=== PATIENT | male | born 1995 | race Caucasian/White ===

== ENCOUNTER 2023-07-08 18:56 | Emergency (ER) | payer MEDICAID, SELFPAY ==
--- NOTE | ~2023-07-08 | XR_ITS ---
EXAMINATION: XR chest 2V DATE: 07/08/2023 19:26 INDICATION: Left chest pain. Shortness of breath. TECHNIQUE: Frontal and lateral views of the chest were obtained. COMPARISON: None. FINDINGS: There is no pneumonia, pleural effusion, or pneumothorax. The heart size is normal. IMPRESSION: 1. No acute cardiopulmonary disease. Reviewed, dictated and finalized at location E. D ARTILLERY CANNONEER
--- NOTE | 2023-07-08 18:59 | ECG_ITS ---
Measurements Intervals [place] Rate: 79 P: 15 [place]: 141 QRS: 21 QRSD: 114 T: 69 QT: 356 QTc: 409 Interpretive Statements SINUS RHYTHM MODERATE INTRAVENTRICULAR CONDUCTION DELAY [110+ ms QRS DURATION] NONSPECIFIC T-WAVE ABNORMALITY BORDERLINE ECG NO PREVIOUS ECG AVAILABLE FOR COMPARISON Electronically Signed On 07-09-2023 14:37:28 FINAL FINISHER by Иван De La O M.D.
[2023-07-08 19:09] VITALS: BP 150/96; PULSE 88; RESP 15; TEMP 36.3; O2SAT 100
[2023-07-08 19:30] LABS: Basophils Absolute Auto 0.1 K/mm3 (0.0-0.1); Basophils Percent Auto 0.8 % (0.2-1.2); Eosinophils Absolute Auto 0.1 K/mm3 (0-0.3); Eosinophils Percent Auto 1.6 % (0-4.4); Hematocrit 47.1 % (42.0-52.0); Immature Granulocyte Absolute 0.01 K/mm3 (0.00-0.031); Immature Granulocyte Percent A 0.1 % (0-0.5); Lymphocytes Absolute Auto 3.08 K/mm3 (0.9-3.2); Lymphocytes Percent Auto 35.2 % (18.3-44.2); Mean Corpuscular Hemoglobin 30.1 pg (26-34); Mean Corpuscular Volume 88.7 fl (80-100); Mean Platelet Volume 10.9 fl (7.4-10.4); Monocytes Absolute Auto 0.8 K/mm3 (0.1-0.6); Monocytes Percent Auto 9.3 % (2.6-8.5); Neutrophils Absolute Auto 4.6 K/mm3 (1.3-6.7); Platelet Count Result 296 k/mm3 (150-375); Red Blood Count 5.31 M/mm3 (4.6-6.20); Red Cell Distribution Width 12.5 % (11.5-14.5); White Blood Count 8.8 K/mm3 (4.5-10.0)
[2023-07-08 19:43] LABS: Alanine Aminotransferase 120 U/L (6-50); Albumin Level 4.8 g/dL (3.5-5.1); Alkaline Phosphatase 62 U/L (38-126); Anion Gap 7 mmol/L (8-16); Aspartate Amino Transferase 61 U/L (17-59); Bilirubin,Total 1.1 mg/dL (0.2-1.3); Blood Urea Nitrogen 12 mg/dL (9-20); Carbon Dioxide 30 mmol/L (22-30); Chloride 102 mmol/L (98-107); Estimated CRCL calculation 194 ml/min; Estimated Glomerular Filt Rate > 60; Glucose 91 mg/dL (65-110); INR 1.1; Lipase 62 U/L (23-300); Potassium 3.9 mmol/L (3.4-5.0); Prothrombin Time 14.2 Seconds (11.1-14.7); Sodium 139 mmol/L (137-145)
[2023-07-08 19:44] LABS: Partial Thromboplastin Time 35.4 SECONDS (22.3-36.8)
[2023-07-08 19:54] LABS: Troponin I < 0.012 ng/mL (0.000-0.034)
--- NOTE | 2023-07-08 22:26 | ECG_ITS ---
Measurements Intervals [place] Rate: 77 P: 12 [place]: 146 QRS: 25 QRSD: 107 T: 120 QT: 358 QTc: 406 Interpretive Statements SINUS RHYTHM NONSPECIFIC T-WAVE ABNORMALITY BORDERLINE ECG COMPARED TO ECG 07/08/2023 19:07:03 NO SIGNIFICANT CHANGES Electronically Signed On 07-09-2023 14:40:19 COUNTERINTELLIGENCE AGENT by Иван De La O M.D.
[2023-07-08 23:09] VITALS: BP 134/85; PULSE 90; RESP 15; O2SAT 100
[2023-07-09] VITALS (11 sets, daily range): BP systolic 131–154; BP diastolic 85–100; PULSE 72–90; RESP 13–25; O2SAT 98–100
--- NOTE | 2023-07-09 00:33 | ED.CHESTPAIN ---
HPI - Chest Pain General Chief Complaint: Chest Pain Stated Complaint: CP - left sided, SOB since this AM Time Seen by Provider: 07/09/23 00:20 History of Present Illness HPI narrative: 27-year-old male with history of hypertension reports for evaluation for left-sided chest pain that started at 10:30 a.m. this morning while he was sitting on his couch. Patient states it in the day, the pain radiated to his left shoulder that has since resolved. States his pain is worse when he leans forward and takes a deep breath as well as pushing on his chest wall. Reports associated dyspnea with the chest pain increases. Denies lower extremity edema, hemoptysis, recent surgeries or hospitalizations, fever, cough, recent injury or trauma. Denies known family history of CAD or CVA. Related Data Allergies Allergy/AdvReac Type Severity Reaction Status Date / Time No Known Allergies Allergy Verified 07/09/23 00:44 Review of Systems Review of Systems: CONSTITUTIONAL: Denies fever, chills, or sweats. EYES: Denies visual changes, redness, or discharge. ENT: Denies rhinorrhea, congestion, sore throat, or otalgia. CARDIOVASCULAR: See HPI RESPIRATORY: See HPI GASTROINTESTINAL: Denies abdominal pain, nausea, vomiting, or diarrhea. GENITOURINARY: Denies dysuria or hematuria. SKIN: Denies rash or itching. MUSCULOSKELETAL: Denies back pain, joint pain, or myalgia. NEUROLOGIC: Denies headache, numbness, or weakness. PSYCHIATRIC: Denies anxiety or depression. Exam Narrative: GENERAL: Well-appearing, well-nourished, and in no acute distress. HEAD: Normocephalic, atraumatic. EYES: PERRLA and EOMI. ENT: Nares clear, no rhinorrhea or epistaxis. Mucous membranes moist. NECK: Supple. CHEST: Clear to auscultation. No respiratory distress. Tenderness to the left sternal border and throughout the left anterior chest wall without step-offs, crepitus or deformities. HEART: Regular rate and rhythm. No murmur heard. Normal peripheral pulses. ABDOMEN: Soft, nontender, nondistended, normal active bowel sounds. EXTREMITIES: Normal range of motion. No edema. SKIN: Warm, dry, no rash. NEURO: No focal deficits. Alert and oriented x3 Course Vital Signs Vital signs: Vital Signs Temperature 97.3 F L 07/08/23 19:09 Pulse Rate 88 07/08/23 19:09 Respiratory Rate 15 07/08/23 19:09 Blood Pressure 150/96 H 07/08/23 19:09 Pulse Oximetry 100 07/08/23 19:09 Oxygen Delivery Room Air 07/08/23 19:09 Temperature 97.3 F L 07/08/23 19:09 Pulse Rate 85 07/09/23 00:52 Respiratory Rate 15 07/08/23 23:09 Blood Pressure 134/85 07/08/23 23:09 Pulse Oximetry 100 07/08/23 23:09 Oxygen Delivery Room Air 07/08/23 19:09 MDM - Chest Pain MDM Narrative Medical decision making narrative: 27-year-old male with history of hypertension reports for evaluation for chest pain that started 10:30 this morning while he was sitting on his couch. See HPI for further history. Triage vital significant for elevated blood pressure 150/96, otherwise unremarkable. Patient is well-appearing on exam, satting 100% on room air. No respiratory distress. Exam is significant for tenderness to the chest wall. CBC is unremarkable. Chemistry is significant for elevation in AST and ALT, no prior history. No abdominal pain. Lipase normal. Likely hepatic steatosis. His chest x-ray shows no acute cardiopulmonary abnormality. EKG significant around specific T-wave abnormality, sinus rhythm, no ischemic changes, not consistent with pericarditis. Troponin x2 within normal limits. Labs and imaging discussed with the patient. He received Tylenol ibuprofen for some suspected MSK etiology. Upon re-evaluation, pain had resolved. Perc negative. Will discharge home with PCP follow-up and ibuprofen for costochondritis. Strict ED return precautions discussed. He is agreeable to plan verbalized understanding. Discharged in stable condition. Lab Data 07/08/23 19:1
[2023-07-09] MEDS: ACETAMINOPHEN 500 MG TABLET 1000 MG PO (00:43)
[2023-07-09] MEDS: IBUPROFEN 400 MG TABLET 800 MG PO (00:43)
[2023-07-09] MEDS: Please add drug allergy info to patient profile. 1 EACH XX (00:45)
[2023-07-09 01:28] LABS: Troponin I < 0.012 ng/mL (0.000-0.034)
== END 2023-07-09 02:35 | disposition home or self-care (01) ==
PROVIDERS: Emergency Medicine; Emergency Provider Physician Assistant
DX: M94.0 Chondrocostal junction syndrome [Tietze] (principal); I10 Essential (primary) hypertension; R94.31 Abnormal electrocardiogram [ECG] [EKG]; I45.9 Conduction disorder, unspecified
CPT/HCPCS: 36415; 71046; 80053; 83690; 84484; 85025; 85610; 85730; 93005; 99284; A9270

== ENCOUNTER 2023-09-02 16:50 | Emergency (ER) | payer OTHER, SELFPAY ==
[2023-09-02 16:50] VITALS: BP 147/87; PULSE 89; RESP 20; TEMP 36.2; O2SAT 98
--- NOTE | 2023-09-02 17:05 | ED.GENADULT ---
HPI - General Adult General Chief complaint: Dental/Oral Stated complaint: toothache Time Seen by Provider: 09/02/23 17:05 History of Present Illness HPI narrative: The patient is a 27-year-old male with history of obesity, no other significant medical conditions. Since yesterday at 1:00 p.m., the patient has had pain in the left lower posterior molar at the wisdom tooth. He has taken Tylenol most recently 5 hours ago. There is no facial swelling. Is able to eat and drink. No fevers or chills. No other complaints. He is due to see a dentist next week. Related Data Allergies Allergy/AdvReac Type Severity Reaction Status Date / Time No Known Allergies Allergy Verified 07/09/23 00:44 Review of Systems Review of Systems: All systems reviewed & are unremarkable except as noted in HPI and below Constitutional: Constitutional: Denies chills, Denies excessive sweating, Denies fatigue, Denies fever(s), Denies headache(s) and Denies weakness Eyes: Eyes: Denies change in vision and Denies photophobia ENT: Denies dysphagia, Denies dizziness, Denies headache(s), Denies lip swelling, Denies nasal congestion, Denies sore throat and Denies tongue swelling Cardiovascular: Cardiovascular: Denies chest pain, Denies syncope, Denies rapid heart rate and Denies dyspnea Respiratory: Respiratory: Denies cough, Denies dyspnea and Denies wheezing Gastrointestinal: Gastrointestinal: Denies abdominal pain, Denies constipation, Denies dysphagia, Denies diarrhea, Denies nausea and Denies vomiting Genitourinary: Genitourinary: Denies hematuria, Denies dysuria, Denies urinary frequency and Denies urinary urgency Musculoskeletal: Musculoskeletal: Denies back pain, Denies myalgias, Denies arthralgias, Denies joint swelling and Denies numbness Integumentary/Breasts: Skin/Breast: Denies pruritus, Denies erythema and Denies rash Neurologic: Denies confusion, Denies dizziness, Denies syncope, Denies headache(s), Denies focal weakness, Denies numbness and Denies weakness Psychiatric: Psychiatric: Denies anxiety and Denies confusion Endocrine: Endocrine: Denies excessive sweating and Denies fatigue Hematologic/Lymphatic: Hematologic/Lymphatic: Denies easy bleeding and Denies easy bruising Allergic/Immunologic: Allergic/Immunologic: Denies lip swelling, Denies tongue swelling and Denies wheezing Exam Const: General: healthy appearing, no acute distress, alert and well nourished Nutritional Appearance: well nourished and obese Orientation/consciousness: patient oriented x3 Limitations: no limitations HENMT: Head: normal to inspection Ears: external ears normal Face/Nose/Sinus: normal facial exam Face and sinus: normal facial exam Mouth: Yes moist mucous membranes Teeth and gingiva: abnormal tooth and associated gingiva ( Tenderness at the left lower posterior most molar wisdom tooth) Throat: posterior oropharynx normal Other: no dental abscess. No gingival swelling. Eyes: Conjunctivae: conjunctivae normal Pupils: Equal, round and reactive pupils present EOM: EOMs intact bilaterally Neck: Neck: normal visual inspection and no meningeal signs Chest: Chest palpation & inspection: normal inspection of the chest and no tenderness Resp: Effort & Inspection: normal respiratory effort and not labored Auscultation: clear to auscultation bilaterally, no crackles, no rhonchi and no wheezes Cardio: Rate: regular rate Rhythm: regular rhythm Heart sounds: no murmurs GI: Inspection: non-distended GI Palp: Yes Soft to palpation, No Tenderness to palpation present (GI), No Guarding due to palpation present (GI) and No Rebound tenderness present : General: Yes no CVA tenderness Back/Spine/Pelvis: Back: no CVA tenderness Cervical Spine: No Cervical spine tenderness Thoracic/Lumbar Spine: No thoracic spinal tenderness Skin: General skin exam: normal color Rashes: no rashes Wounds: no wounds Neuro: General: patient oriented x3, moves all
[2023-09-02] MEDS: AMOXICILLIN 500 MG CAPSULE PO (17:12)
[2023-09-02] MEDS: IBUPROFEN 400 MG TABLET 800 MG PO (17:12)
[2023-09-02] MEDS: ACETAMINOPHEN 500 MG TABLET 1000 MG PO (17:13)
== END 2023-09-02 17:43 | disposition home or self-care (01) ==
LOC: CHSED 17:23
PROVIDERS: Emergency Provider Emergency Medicine
DX: K02.9 Dental caries, unspecified (principal)
CPT/HCPCS: 99283; A9270

== ENCOUNTER 2023-11-15 14:16 | Outpatient (CLI) | payer OTHER, SELFPAY ==
--- NOTE | ~2023-11-15 | XR_ITS ---
[id number] Ordering provider: Adria Llanos APRN History: . numbness/tingling on LT side radiating down LT arm x3 days . Comparison: None. FINDINGS: VERTEBRAL BODIES: Normal height and alignment. No visible fracture or subluxation. The dens is intact . DISK SPACES: Well maintained. PARASPINOUS SOFT TISSUES: No prevertebral soft tissue swelling. IMPRESSION: No acute osseous abnormality cervical spine. Reviewed, dictated and finalized at location A.
[2023-11-15 14:43] LABS: Basophils Absolute Auto 0.07 K/mm3 (0.00-0.10); Basophils Percent Auto 0.7 % (0.0-1.0); Eosinophils Absolute Auto 0.15 K/mm3 (0.02-0.50); Eosinophils Percent Auto 1.5 % (1.0-6.0); Hematocrit 46.3 % (40.0-54.0); Hemoglobin 16.2 g/dL (14.0-18.0); Immature Granulocyte Absolute 0.02 K/mm3 (0.00-0.00); Immature Granulocyte Percent A 0.2 % (0.0-0.0); Lymphocytes Absolute Auto 3.44 K/mm3 (1.10-4.50); Lymphocytes Percent Auto 35.4 % (18.0-42.0); Mean Corpuscular Hemoglobin 30.5 pg (27.0-31.0); Mean Corpuscular Volume 87.2 fL (78.0-102.0); Mean Platelet Volume 10.7 fl (8.7-11.0); Monocytes Absolute Auto 0.85 K/mm3 (0.10-0.90); Monocytes Percent Auto 8.7 % (2.0-11.0); Neutrophils Percent Auto 53.5 % (50.0-70.0); Platelet Count Result 281 K/mm3 (150-420); Red Blood Count 5.31 M/mm3 (4.70-6.10); Red Cell Distribution Width 12.1 % (11.6-14.4); White Blood Count 9.7 K/mm3 (4.8-10.8)
[2023-11-15 14:54] LABS: Hemoglobin A1C 4.8 % (<5.7)
[2023-11-15 15:22] LABS: Alanine Aminotransferase 84 U/L (16-63); Albumin Level 4.3 g/dL (3.4-5.0); Alkaline Phosphatase 67 U/L (46-116); Anion Gap 8 mmol/L (4-12); Aspartate Amino Transferase 33 U/L (15-37); Bilirubin,Total 0.7 mg/dL (0.00-1.00); Blood Urea Nitrogen 8 mg/dL (7-18); Calcium 9.3 mg/dL (8.5-10.1); Carbon Dioxide 29 mmol/L (21-32); Chloride 103 mmol/L (98-108); Cholesterol 223 mg/dL (0-200); Estimated Glomerular Filt Rate > 60; Glucose 92 mg/dL (70-99); HDL Direct 39 mg/dL (40-60); LDL Cholesterol Calculated 129 mg/dL (<130); Osmolality Calculated 288 mOsm/kg (285-295); Potassium 4.3 mmol/L (3.5-5.1); Sodium 140 mmol/L (136-145); Thyroid Stimulating Hormone 1.93 uIU/mL (0.36-3.74); Total Protein 7.5 g/dL (6.4-8.2); Triglycerides 276 mg/dL (0-150)
== END 2023-11-15 14:17 | disposition home or self-care (01) ==
PROVIDERS: PCP Nurse Practitioner Family; Visit Provider Nurse Practitioner Family
DX: Z00.00 Encounter for general adult medical examination without abnormal findings (principal); R20.2 Paresthesia of skin; R20.0 Anesthesia of skin
CPT/HCPCS: 36415; 72040; 80053; 80061; 83036; 84443; 85025

== ENCOUNTER 2023-11-18 14:02 | Outpatient (CLI) | payer OTHER, SELFPAY ==
--- NOTE | ~2023-11-18 | XR_ITS ---
EXAMINATION: XR lumbar spine 2-3V DATE: 11/18/2023 14:17 INDICATION: Low back pain. TECHNIQUE: 2 views of lumbar spine were obtained. COMPARISON: Chest 2 views 07/08/2023 FINDINGS: Bone alignment is normal. Vertebral body heights and intervertebral disc heights are normal . The facet joints are unremarkable. IMPRESSION: 1. Normal lumbar spine. Reviewed, dictated and finalized at location A. IMPRESSION: 1. Normal lumbar spine.
== END 2023-11-18 14:03 | disposition home or self-care (01) ==
LOC: CHSLAB 14:05
PROVIDERS: PCP Nurse Practitioner Family; Visit Provider Nurse Practitioner Family
DX: M54.50 Low back pain, unspecified (principal)
CPT/HCPCS: 72100

== ENCOUNTER 2023-11-22 07:50 | Outpatient (RCR) | payer OTHER, SELFPAY ==
--- NOTE | 2023-11-22 09:38 | OPREHPOC ---
Outpatient Therapy Plan of Care This is a Multidisciplinary Plan of Care that may contain components documented by all disciplines (PT, OT, and ST.) PT Problem 1 PT Problem #1 Knowledge Deficit PT Goal 1 Goal 1. independent and compliant with HEP Target Visit 6 PT Problem 2 PT Problem #2 Pain PT Goal 1 Goal 1. decrease lower back pain at worst to 5/10 or less 2. decrease neck pain at worst to 4/10 or less Target Visit 12 PT Problem 3 PT Problem #3 Impaired Range of Motion PT Goal 1 Goal 1. 100% active lumbar rom without pain or instability Target Visit 12 PT Problem 4 PT Problem #4 Impaired Strength PT Goal 1 Goal 1. improve L shoulder and elbow strength to 4+/5 or better overall 2. improve L hip strength to 4+/5 or better overall 3. improve L knee strength to 5/5 4. improve L ankle DF to 5/5 Target Visit 12 PT Problem 5 PT Problem #5 Impaired Functional Mobil PT Goal 1 Goal 1. oswestry to display 10% or less functional deficits 2. NDI to display less than 10% functional deficits 3. patient to ambulate with normal gait mechanics and no AD 4. patient to return to prior level standing and walking tolerance to participate in home and community activities. 5. patient to report reduction of all L LE and L UE radicular symptoms. Target Visit 12
--- NOTE | 2023-11-22 09:38 | PTOPEVAL1 ---
Assessment and note entered by JT File, PT Evaluation Information Assessment Status Evaluation ICD-10 Condition Codes (PT) Cervicalgia M54.2,Pain in low back M54.50 Other ICD-10 Condition Codes ( R 20.0 - anesthesia of skin, R20.2 - paresthesia PT) of skin Onset 11/18/23 Subjective Information patient reports his symptoms began as pains in the legs and making him hobble around. however, he reports it has progressed to his legs collapsing on him frequently. he reports his legs feel rubbery. he reports these symptoms are located to the L LE. he reports his symptoms have been going on most recently since 11/12/23. he reports he has had similar symptoms in the past. he reports his symptoms lasted months last time. he reports he did do PT last time due to his symptoms. he reports he did have a lumbar xray recently. he reports he is unaware of any significant results. he reports he does work. 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 he reports he is off work currently due to his L LE. he reports he is also having issues with the neck. he reports the neck feels like a knot in the neck that wont go away. he reports he has symptoms in the L UE. he reports feeling numbness and having weakness and difficulty grasping items. he reports he has had an xray of the neck, but no MRI as of this date. he has no recollection of an injury. however, he reports he was stuck in a unicorn floatie walking around [employer] for several hours prior to his symptoms beginning. he report she has seen a neurologist once who thought he may have MS, but patient reports the MD moved, and he has not followed up with anyone else. he reports this original assessment was last year. Reported Pain Level Pain Score 7,10: Self Report Assessment PT Clinical Summary mr. reynoso is a 28 yo man who presents to skilled PT for evaluation and treatment of neck and back radiculopathy. he presents today with deficits in L UE and L LE strength, L UE and L LE paresthesia's, deficits in lumbar rom, and abnormal gait mechanics. he has no significant injury that correlates to his symptoms, and his xray of the neck and lower back are negative. patient's would benefit from MRI evaluation of the neck and back to rule out any discoid injury, and referral to neurologist for evaluation of old findings reported to PT today.
== END 2023-12-26 20:00 | disposition home or self-care (01) ==
LOC: CHSPT 07:50
PROVIDERS: PCP Family Medicine; Visit Provider Nurse Practitioner Family
DX: M54.50 Low back pain, unspecified (principal); M54.2 Cervicalgia; R20.0 Anesthesia of skin; R20.2 Paresthesia of skin
CPT/HCPCS: 97012; 97014; 97110; 97161; G0283

== ENCOUNTER 2023-12-03 07:49 | Outpatient (CLI) | payer OTHER, SELFPAY ==
--- NOTE | ~2023-12-03 | MR_ITS ---
MR cervical spine wo con Ordering provider: Adria Llanos APRN History: 28 years Male with . M54.2 - Cervicalgia . Comparison: None. Technique: MRI cervical spine without contrast. FINDINGS: CERVICAL SPINAL CORD/CRANIAL CERVICAL JUNCTION: Normal in signal and caliber. CERVICAL VERTEBRAL BODIES: Normal height and alignment. Normal marrow signal. DISK SPACES: Normal. C2-C3: No stenosis. C3-C4: No stenosis. C4-C5: No stenosis. C5-C6: No stenosis. C6-C7: No stenosis. C7-T1: No stenosis. VISUALIZED PARASPINOUS SOFT TISSUES: Normal. IMPRESSION: 1. No definite abnormality seen. Reviewed, dictated and finalized at location A.
== END 2023-12-03 07:50 | disposition home or self-care (01) ==
LOC: CHSIMG 07:50
PROVIDERS: PCP Nurse Practitioner Family; Visit Provider Nurse Practitioner Family
DX: R20.2 Paresthesia of skin (principal); R20.0 Anesthesia of skin; M54.2 Cervicalgia
CPT/HCPCS: 72141

== ENCOUNTER 2023-12-05 14:55 | Emergency (ER) | payer OTHER, SELFPAY ==
[2023-12-05 15:01] VITALS: BP 176/99; PULSE 117; RESP 22; TEMP 36.4; O2SAT 99
[2023-12-05 15:21] VITALS: O2SAT 99
--- NOTE | 2023-12-05 16:23 | ED.ALLEREA ---
HPI - Allergic Reaction General Chief complaint: Allergic Reaction Stated complaint: ALLERGIC REACTION Time Seen by Provider: 12/05/23 14:59 Related Data Allergies Allergy/AdvReac Type Severity Reaction Status Date / Time tetrahydrocannabinol (THC) Allergy Severe Muscle Unverified 12/05/23 15:13 Spasms tree and shrub pollen Allergy Mild Other Verified 12/05/23 15:13 black mold Allergy Mild Other Uncoded 11/18/23 13:35 Review of Systems Review of Systems: Patient is a 28-year-old male with a significant past medical history that presents today for looser reaction. Patient says that he drank a can and soda and he thinks has allergic reaction to wear 1 ingredients was. He gave himself an epi shot because of this. He said he does have a few higher dose and no shortness of breath but decided to give himself the EpiPen anyways. He currently now is shaky and has a high heart rate because the eppy. All systems reviewed & are unremarkable except as noted in HPI and below Constitutional: Constitutional: Reports as per HPI Eyes: Eyes: Reports no additional eye complaints ENT: Reports system reviewed and no additional complaints, except as documented Cardiovascular: Cardiovascular: Reports no additional cardiovascular complaints Respiratory: Respiratory: Reports no additional respiratory complaints Gastrointestinal: Gastrointestinal: Reports no additional gastrointestinal complaints Genitourinary: Genitourinary: Reports no additional male genitourinary complaints Musculoskeletal: Musculoskeletal: Reports no additional musculoskeletal complaints Integumentary/Breasts: Skin/Breast: Reports system reviewed and no additional complaints, except as docu Neurologic: Reports system reviewed and no additional complaints, except as documented Psychiatric: Psychiatric: Reports no additional psychiatric complaints Endocrine: Endocrine: Reports no additional endocrine complaints Hematologic/Lymphatic: Hematologic/Lymphatic: Reports no additional hematologic/lymphatic complaints Allergic/Immunologic: Allergic/Immunologic: Reports no additional allergic/immunologic complaints [facility] Past Medical History Medical History 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 Cervicalgia Hypertension Family History Family History Mother Diabetes mellitus Social History Social History Smoking status: Former smoker Alcohol intake: current Alcohol use details: reports may have a shot to get to bed every few weeks, otherwise does not drink Do You Feel Safe in your Home?: Yes Lack of Transportation: No Lack of Food: Never True Current Housing: I Have Housing Concerned About Future Housing: No Difficulty Paying Gas/Electric Bills: No Difficulty Paying for Meds: No Currently Unemployed: No Education: High School Diploma/GED Difficulty w/ Childcare or Family Care: No Living arrangements: with family Occupation/Education: occupation Additional occupation/education comments: [employer] Gender identity (if verbalized by the patient): Male Sexual Orientation (if Verbalized by the Patient): Straight or Heterosexual Exam Const: General: healthy appearing and no acute distress Nutritional Appearance: well nourished Orientation/consciousness: patient oriented x3 HENMT: Head: normal to inspection Ears: external ears normal Face/Nose/Sinus: Normal external nose present Face and sinus: normal facial exam Eyes: Conjunctivae: conjunctivae normal Pupils: Equal, round and reactive pupils present EOM: EOMs intact bilaterally Neck: Neck: normal visual inspection Chest: Chest palpation & inspection: normal inspection of the chest Resp: Effort & Inspection: normal respiratory effort Auscultation: clear to auscultation bilaterally Cardio: Rate: regular rate
[2023-12-05 16:35] VITALS: BP 150/98; PULSE 99; RESP 18; TEMP 36.3; O2SAT 100
== END 2023-12-05 16:38 | disposition home or self-care (01) ==
PROVIDERS: Emergency Provider Family Medicine; PCP Nurse Practitioner Family
DX: T78.1XXA Other adverse food reactions, not elsewhere classified, initial encounter (principal); R21 Rash and other nonspecific skin eruption; I10 Essential (primary) hypertension; Z87.891 Personal history of nicotine dependence
CPT/HCPCS: 99283

== ENCOUNTER 2023-12-07 12:45 | Outpatient (CLI) | payer OTHER, SELFPAY ==
--- NOTE | ~2023-12-07 | XR_ITS ---
XR hip LT min 2V 12/07/2023 13:03 Indication: Left hip pain Procedure: 2 views left hip Comparison: No prior studies for comparison. Findings: No fracture, subluxation or dislocation. No significant soft tissue abnormality. No foreign bodies. No foreign bodies. Impression: 1: No significant bone or joint abnormality. Reviewed, dictated and finalized at location B. Impression: 1: No significant bone or joint abnormality.
== END 2023-12-07 12:46 | disposition home or self-care (01) ==
PROVIDERS: PCP Nurse Practitioner Family; Visit Provider Nurse Practitioner Family
DX: M25.552 Pain in left hip (principal)
CPT/HCPCS: 73502

== ENCOUNTER 2023-12-14 15:03 | Outpatient (CLI) | payer OTHER, SELFPAY ==
[2023-12-14 16:09] LABS: CRP 1.3 mg/dL (0.0-0.9); Vitamin B12 715 pg/mL (193-986)
[2023-12-14 17:05] LABS: Erythrocyte Sedimentation Rate 34 mm/hr (0-15)
[2023-12-16 03:09] LABS: Vitamin D 25 Hydroxy 23 ng/mL (30-100)
[2023-12-16 11:49] LABS: ANA Cascade Screen NEGATIVE (NEGATIVE)
[2023-12-19 11:43] LABS: RPR Screen NON-REACTIVE (NON-REACTIVE)
[2023-12-19 15:14] LABS: Lyme Disease Ab (IgM), Blot NEGATIVE (NEGATIVE); Lyme Disease Ab(IgG), Blot NEGATIVE (NEGATIVE)
== END 2023-12-14 15:04 | disposition home or self-care (01) ==
PROVIDERS: PCP Nurse Practitioner Family; Visit Provider Nurse Practitioner Family
DX: R93.0 Abnormal findings on diagnostic imaging of skull and head, not elsewhere classified (principal)
CPT/HCPCS: 36415; 82306; 82607; 83516; 85652; 86038; 86140; 86225; 86235; 86592; 86617

== ENCOUNTER 2024-01-23 15:31 | Outpatient (CLI) | payer OTHER, SELFPAY ==
[2024-01-23 16:43] LABS: Alanine Aminotransferase 97 U/L (16-63); Albumin Level 4.3 g/dL (3.4-5.0); Alkaline Phosphatase 79 U/L (46-116); Aspartate Amino Transferase 39 U/L (15-37); Bilirubin Direct 0.1 mg/dL (0-0.2); Bilirubin,Total 0.6 mg/dL (0.00-1.00); Cholesterol 249 mg/dL (0-200); HDL Direct 43 mg/dL (40-60); LDL Cholesterol Calculated 163 mg/dL (<130); Total Protein 7.5 g/dL (6.4-8.2); Triglycerides 216 mg/dL (0-150)
[2024-01-24 11:35] LABS: Vitamin D 25 Hydroxy 28 ng/mL (30-100)
[2024-01-24 12:08] LABS: Hepatitis A Antibody IgM NON-REACTIVE (NON-REACTIVE); Hepatitis B Core Antibody NON-REACTIVE (NON-REACTIVE); Hepatitis B Surface Antigen NON-REACTIVE (NON-REACTIVE); Hepatitis C Virus Antibody NON-REACTIVE (NON-REACTIVE)
== END 2024-01-23 15:32 | disposition home or self-care (01) ==
LOC: CHSLAB 15:32
PROVIDERS: PCP Nurse Practitioner Family; Visit Provider Nurse Practitioner Family
DX: E78.00 Pure hypercholesterolemia, unspecified (principal); E55.9 Vitamin D deficiency, unspecified; R74.8 Abnormal levels of other serum enzymes
CPT/HCPCS: 36415; 80061; 80074; 80076; 82306

== ENCOUNTER 2024-04-27 14:57 | Outpatient (CLI) | payer OTHER, SELFPAY ==
--- NOTE | ~2024-04-27 | XR_ITS ---
EXAMINATION: XR thoracic spine 2V DATE: 04/27/2024 15:28 INDICATION: Back pain. Fall. TECHNIQUE: 3 views of thoracic spine on 4 radiographs were obtained. COMPARISON: None. FINDINGS: There is 4 degrees dextrocurvature of thoracic spine. Vertebral body heights are normal. Th ere is mildly decreased disc height at multiple levels in mid thoracic spine. There are endplate oste ophytes at multiple levels. IMPRESSION: 1. Mild thoracic spondylosis. Reviewed, dictated and finalized at location A. UAGE TRANSLATOR
--- NOTE | ~2024-04-27 | XR_ITS ---
EXAMINATION: XR wrist RT w scaphoid DATE: 04/27/2024 15:27 INDICATION: Right wrist pain. Fall. TECHNIQUE: 4 views of right wrist were obtained. COMPARISON: None. FINDINGS: Alignment is normal. No fracture. Joint spaces are normal. IMPRESSION: 1. Normal right wrist. Reviewed, dictated and finalized at location A. OIL COOLER OPERATOR IMPRESSION: 1. Normal right wrist.
[2024-04-27 15:53] LABS: Alanine Aminotransferase 96 U/L (16-63); Albumin Level 4.2 g/dL (3.4-5.0); Alkaline Phosphatase 81 U/L (46-116); Anion Gap 8 mmol/L (4-12); Aspartate Amino Transferase 37 U/L (15-37); Bilirubin,Total 0.6 mg/dL (0.00-1.00); Blood Urea Nitrogen 12 mg/dL (7-18); Calcium 9.8 mg/dL (8.5-10.1); Carbon Dioxide 30 mmol/L (21-32); Chloride 102 mmol/L (98-108); Cholesterol 257 mg/dL (0-200); Estimated Glomerular Filt Rate > 60; Glucose 98 mg/dL (70-99); HDL Direct 47 mg/dL (40-60); LDL Cholesterol Calculated 158 mg/dL (<130); Osmolality Calculated 289 mOsm/kg (285-295); Potassium 4.4 mmol/L (3.5-5.1); Sodium 140 mmol/L (136-145); Total Protein 7.6 g/dL (6.4-8.2); Triglycerides 262 mg/dL (0-150)
--- OUTSIDE RECORDS SUMMARY | 2024-05-01 00:10 | XMS_ITS | Encounter Summary ---
Author Organization [facility] Healthcare Address [address] [place] [address] Care Team Providers Care Financial Reporting Manager Name Role Phone Adria Llanos NP Primary Care Provider [phone] Reason for Referral * MRI/CAT/PET Scan (Routine) - Closed Specialty Diagnoses / Procedures Referred By Hamida butt Referred To Contact Radiology Diagnoses Multiple sclerosis (HCC) Procedures MRI Brain W WO Contrast Tai Coon MD [address] [place] [address] [address] [place] [address] Phone: tel: fax: [address] [phone] Referral ID Status Reason Start Date Expiration Date Visits Re quested Visits Authorized [id number] Closed 03/23/2024 05/22/2024 1 1 ETIC TECHNICIAN REGISTERED Reason for Visit * MRI/CAT/PET Scan (Routine) - Closed Specialty Diagnoses / Procedures Referred By Contac filomena Referred To Contact Radiology Diagnoses Multiple sclerosis (HCC) Procedures MRI Brain W WO Contrast Tai Coon MD [address] [place] [address] [place] [address] Phone: tel: fax: [address] [phone] Referral ID Status Reason Start Date Expiration Date Visits Re quested Visits Authorized [id number] Closed 03/23/2024 05/22/2024 1 1 Encounter Details Date Type Department Care Team (Latest Contact Info) Description 04/26/2024 12:35 PM DIETETIC TECHNICIAN REGISTERED - 04/26/2024 11:59 PM DIETETIC TECHNICIAN REGISTERED Hospital Encounter [facility] [address] [place] [address] Multiple sclerosis (HCC) Discharge Disposition: Discharge to home or self care Social History Tobacco Use Types Packs/Day Years Used Date Smoking Tobacco: Former Cigarettes Sex and Gender Information Value Date Recorded Sex Assigned at Not on file Legal Sex Male 1:24 PM CDT Gender Identity Male 03/22/2024 9:32 AM DIETETIC TECHNICIAN REGISTERED Sexual Orientation Asexual 03/22/2024 9: 32 AM DIETETIC TECHNICIAN REGISTERED documented as of this encounter Medications at Time of Discharge ergocalciferol (VITAMIN D) 50,000 unit capsule 03/14/2024 escitalopram (LEXAPRO) 10 mg tablet TAKE 1 TAB ORALLY DAILY FOR 10 WEEKS 02/16/2024 milk thistle 150 mg capsule Take by mouth mupirocin (BACTROBAN) 2 % ointment APPLY AROUND NAILBED OF BOTH BIG TOES TWICE DAILY FOR 2 WEEKS. 01/25/2024 documented as of this encounter Discharge Disposition Disposition Code Departure Means Destination Discharge to home or self care documented in this encounter Plan of Treatment Not on file documented as of this encounter Procedures Procedure Name Priority Date/Time Associated Diagnosis Comments MRI BRAIN W WO CONTRAST Schedule ASHLEY, Read Routine (Patient lives out of area) 04/26/2024 1:48 PM DIETETIC TECHNICIAN REGISTERED Multiple sclerosis (HCC) documented in this encounter Results * MRI Brain W WO Contrast (04/26/2024 1:48 PM DIETETIC TECHNICIAN REGISTERED) Anatomical Region Laterality Modality Head and Neck N/A Magnetic Resonan ce 04/26/2024 2:10 PM DIETETIC TECHNICIAN REGISTERED Narrative 04/26/2024 2:17 PM DIETETIC TECHNICIAN REGISTERED EXAM DESCRIPTION: ?? MRI BRAIN W WO CONTRAST REASON FOR STUDY: 2 episodes, of unspecified duration per episode, of left-sided body numbness this past summer with clinical concern for multiple sclerosis. ??No provided current patient complaints. ??No provided history of trauma or inciting and/or aggravating events. ??No provided past medical or surgical history. TECHNIQUE: Multiplanar imaging includes noncontrast T1, T2, FLAIR, diffusion with ADC map and post contrast T1 sequences. Additional sequence(s) sensitive to blood products. ??Images stored on PACS. ? CONTRAST TYPE/DOSE: ?? 20 mL Dotarem ??injected via ?? peripheral IV site without reported incident. COMPARISON: ?? No prior imaging available at time of interpretation. FINDINGS: CEREBRUM: ?? No acute intra-axial hemorrhage. ??No edema, mass effect, midline shift, or herniation. ?No abnormal enhancement. ?? Slight mineralization of the lentiform nuclei. WHITE MATTER: ?? 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 T2/FLAIR hyperintense ??white matter disease concerning for demyelinating disease to include multiple sclerosis. ??No associated contrast enhancement to suggest active demyelinating lesions, though multiple lesions demonstrate associated slight T1 hypointensity consistent with black holes. POSTERIOR FOSSA: ?? Brainstem and cerebellum are unremarkable. ??No abnormal enhancement. DIFFUSION IMAGING: ?No restricted diffusion to suggest cytotoxic or intramyelinic edema as evidence of acute/subacute ischemia/infarct or active demyelinating lesions. EXTRAAXIAL SPACES: ?? No extra-axial fluid collection. ??No extra-axial mass. ?? No abnormal enhancement. BRAIN VOLUME: ?? Within normal limits for age. PITUITARY: ?? Unremarkable. VASCULATURE: ?? No flow disturbance evident. CALVARIUM: Unremarkable. ORBITS: ?? No acute abnormality. ??Ocular lenses and globes normal in conformation and position. PARANASAL SINUSES AND MASTOIDS: ?? Well-aerated with no fluid levels. No mucosa thickening. OTHER: ?? No other significant finding. IMPRESSION: ?? 1. ?? White matter disease as detailed above concerning for demyelinating disease to include multiple sclerosis without contrast enhancement suggestive of active demyelinating lesions, though multiple lesions demonstrating associated slight T1 hypointensity consistent with black holes. 2. ?? Correlate with clinical context to include CSF oligoclonal band analysis. THIS IS AN ELECTRONICALLY VERIFIED FINAL REPORT 04/26/2024 2:17 PM - Electronically signed by ??Jett KAUR: VINCENT D: ??04/26/2024 2:17 PM T: ??04/26/2024 2:17 PM Report ID: [id number] Reading Location: ??[id number] Procedure Note Jett Patterson MD - 04/26/2024 EXAM DESCRIPTION: MRI BRAIN W WO CONTRAST REASON FOR STUDY: 2 episodes, of unspecified duration per episode, of left-sided body numbness this past summer with clinical concern formultiple sclerosis. No provided current patient complaints. No provided historyof trauma or inciting and/or aggravating events. No provided past medical or surgical history. TECHNIQUE: Multiplanar imaging includes noncontrast T1, T2, FLAIR,diffusion with ADC map and post contrast T1 sequences. Additional sequence(s)sensitive to blood products. Images stored on PACS. CONTRAST TYPE/DOSE: 20 mL Dotarem injected via peripheral IV sitewithout reported incident. COMPARISON: No prior imaging available at time of interpretation. FINDINGS: CEREBRUM: No acute intra-axial hemorrhage. No edema, mass effect,midline shift, or herniation. No abnormal enhancement. Slight mineralizationof the lentiform nuclei. 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 No associatedcontrast enhancement to suggest active demyelinating lesions, though multiplelesions demonstrate associated slight T1 hypointensity consistent with blackholes. POSTERIOR FOSSA: Brainstem and cerebellum are unremarkable. No abnormal enhancement. DIFFUSION IMAGING: No restricted diffusion to suggest cytotoxic or intramyelinic edema as evidence of acute/subacute ischemia/infarct oractive demyelinating lesions. EXTRAAXIAL SPACES: No extra-axial fluid collection. No extra-axialmass. No abnormal enhancement. BRAIN VOLUME: Within normal limits for age. PITUITARY: Unremarkable. VASCULATURE: No flow disturbance evident. CALVARIUM: Unremarkable. ORBITS: No acute abnormality. Ocular lenses and globes normal in conformation and position. PARANASAL SINUSES AND MASTOIDS: Well-aerated with no fluid levels. Nomucosa thickening. OTHER: No other significant finding. IMPRESSION: 1. White matter disease as detailed above concerning for demyelinating disease to include multiple sclerosis without contrast enhancementsuggestive of active demyelinating lesions, though multiple lesions demonstrating associated slight T1 hypointensity consistent with black holes. 2. Correlate with clinical context to include CSF oligoclonal bandanalysis. THIS IS AN ELECTRONICALLY VERIFIED FINAL REPORT 04/26/2024 2:17 PM - Electronically signed by Jett Patterson M.D. VINCENT: VINCENT Report ID: [id number] Reading Location: [place] [address] Tai Coon MD IMG MRI PROCEDURES Kera l Result documented in this encounter Visit Diagnoses Diagnosis Multiple sclerosis (HCC) Multiple sclerosis documented in this encounter Administered Medications Inactive Administered Medications - up to 3 most recent administrations Medication Order MAR Action Action Date Dose Rate Site gadoterate meglumine injection 20 mL 20 mL, intravenous, Once in imaging, contrast, Starting on Antionette 04/26/24 at 1349, For 1 dose Contrast Given 04/26/2024 1:51 PM DIETETIC TECHNICIAN REGISTERED 20 mL documented in this encounter Orders Medications Ordered That Kwabena ht Not Have Been Administered Count Last Ordered Date First Ordered Date gadoterate meglumine injection 20 mL 1 04/15 documented in this encounter Care Teams Financial Reporting Manager Relationship Specialty Start Date End Date Adria Llanos NP [address] [place] [address] PCP - General Family Medicine 11/23/23 documented as of this encounter
--- OUTSIDE RECORDS SUMMARY | 2024-05-01 00:10 | XMS_ITS | Referral Summary ---
Author Organization [facility] Medical Office Building B Address [address] [place] [address] Care Team Providers Care Bulk Filler Name Role Phone Adria Llanos NP Primary Care Provider [phone] Encounters Date Type Department Care Team Description 04/26/2024 12:35 PM RODENT CONTROL WORKER - 04/26/2024 11:59 PM RODENT CONTROL WORKER Hospital Encounter [facility] [address] [place] [address] Multiple sclerosis (HCC) Discharge Disposition: Discharge to home or self care 03/22/2024 9:00 AM RODENT CONTROL WORKER Office Visit [facility] [address] [place] [id number] Tai Coon MD Cervicalgia; Multiple sclerosis (HCC) from Last 3 Months Allergies Active Allergy Reactions Criticality Noted Date Comments Mold Hives Medium 03/22/2024 Tetrahydrocannabinol (Thc) Other (See comments) Low 03/22/2024 Shaking Medications mupirocin (BACTROBAN) 2 % ointment APPLY AROUND NAILBED OF BOTH BIG TOES TWICE DAILY FOR 2 WEEKS. 01/25/2024 Active escitalopram (LEXAPRO) 10 mg tablet TAKE 1 TAB ORALLY DAILY FOR 10 WEEKS 02/16/2024 Active ergocalciferol (VITAMIN D) 50,000 unit capsule 03/14/2024 Active milk thistle 150 mg capsule Take by mouth Active Active Problems Problem Noted Date Diagnosed Date Multiple sclerosis 03/22/2024 Social History Tobacco Use Types Packs/Day Years Used Date Smoking Tobacco: Former Cigarettes Tobacco Cessation:Counseling Given: Not Answered Sex and Gender Information Value Date Recorded Sex Assigned at Not on file Legal Sex Male 1:24 PM CDT Gender Identity Male 03/22/2024 9:32 AM RODENT CONTROL WORKER Sexual Orientation Asexual 03/22/2024 9: 32 AM RODENT CONTROL WORKER Last Filed Vital Signs Vital Sign Reading Time Taken Comments Blood Pressure - - Pulse 89 03/22/2024 9:03 AM RODENT CONTROL WORKER Temperature - - Respiratory Rate 18 03/22/2024 9:03 AM RODENT CONTROL WORKER Oxygen Saturation 97% 03/22/2024 9:03 AM RODENT CONTROL WORKER Inhaled Oxygen Concentration - - Weight 146.7 kg (323 lb 6.4 oz) 03/22/2024 9:03 AM RODENT CONTROL WORKER Height 188 cm (6' 2 ) 03/22/2024 9:03 AM RODENT CONTROL WORKER Body Mass Index 41.52 03/22/2024 9:03 AM RODENT CONTROL WORKER Plan of Treatment Not on file Procedures Procedure Name Priority Date/Time Associated Diagnosis Comments MRI BRAIN W WO CONTRAST Schedule ASHLEY, Read Routine (Patient lives out of area) 04/26/2024 1:48 PM RODENT CONTROL WORKER Multiple sclerosis (HCC) from Last 3 Months Results * MRI Brain W WO Contrast (04/26/2024 1:48 PM RODENT CONTROL WORKER) Anatomical Region Laterality Modality Head and Neck N/A Magnetic Resonan ce 04/26/2024 2:10 PM RODENT CONTROL WORKER Narrative 04/26/2024 2:17 PM RODENT CONTROL WORKER EXAM DESCRIPTION: ?? MRI BRAIN W WO [...] 2:17 PM - Electronically signed by ??Jett Patterson M.D. VINCENT: VINCENT D: ??04/26/2024 2:17 PM T: ??04/26/2024 2:17 PM Report ID: [id number] Reading Location: ??[id number] Procedure Note Jett Patterson MD - 04/26/2024 [...] Jett Patterson M.D. VINCENT: VINCENT Report ID: [id number] Reading Location: [id number] Tai Coon MD IMG MRI PROCEDURES Kera l Result from Last 3 Months Insurance [facility] [facility] Care Teams Bulk Filler Relationship Specialty Start Date End Date Adria Llanos NP [address] [place] [address] PCP - General Family Medicine 11/23/23
--- OUTSIDE RECORDS SUMMARY | 2024-05-01 00:10 | XMS_ITS | Clinical Summary ---
Author Organization [facility] Medical Office Building B Address [address] [place] [address] Care Team Providers Care Rehabilitator Name Role Phone Adria Llanos NP Primary Care Provider [phone] Allergies Active Allergy Reactions Criticality Noted Date [...] Noted Date Diagnosed Date Multiple sclerosis 03/22/2024 Encounters Date Type Department Care Team Description 04/26/2024 12:35 PM GREEN MARKETING ANALYST - 04/26/2024 11:59 PM GREEN MARKETING ANALYST Hospital Encounter [facility] [address] [place] [address] Multiple sclerosis (HCC) Discharge Disposition: Discharge to home or self care 03/22/2024 9:00 AM GREEN MARKETING ANALYST Office Visit [facility] [address] [place] [address] Tai Coon MD Cervicalgia; Multiple sclerosis (HCC) from Last 3 Months Family History Medical History Relation Name Comments Diabetes Mother garrett Relation Name Status Comments Mother garrett Alive Social History Tobacco Use Types Packs/Day Years Used Date Smoking Tobacco: Former Cigarettes Tobacco Cessation:Counseling Given: Not Answered Sex and Gender Information Value Date Recorded Sex Assigned at Not on file Legal Sex Male 1:24 PM CDT Gender Identity Male 03/22/2024 9:32 AM GREEN MARKETING ANALYST Sexual Orientation Asexual 03/22/2024 9: 32 AM GREEN MARKETING ANALYST Obstetrics History Last Filed Vital Signs Vital Sign Reading Time Taken Comments Blood Pressure - - Pulse 89 03/22/2024 9:03 AM GREEN MARKETING ANALYST Temperature - - Respiratory Rate 18 03/22/2024 9:03 AM GREEN MARKETING ANALYST Oxygen Saturation 97% 03/22/2024 9:03 AM GREEN MARKETING ANALYST Inhaled Oxygen Concentration - - Weight 146.7 kg (323 lb 6.4 oz) 03/22/2024 9:03 AM GREEN MARKETING ANALYST Height 188 cm (6' 2 ) 03/22/2024 9:03 AM GREEN MARKETING ANALYST Body Mass Index 41.52 03/22/2024 9:03 AM GREEN MARKETING ANALYST Plan of Treatment Health Maintenance Due Date Last Done Comments Depression Screening 1997 Hepatitis C Screening 1997 DTaP/Tdap/Td Vaccine (1 - Tdap) 2008 Varicella Vaccines (1 of 2 - 13+ 2-dose series) 2010 HPV Vaccines (1 - Male 3-dos e series) 2012 Hepatitis B Screening 10/16/2015 Regular Well Visit/Exam 18-64 10/16/2015 Influenza Vaccine (#1) 2024 Pneumococcal vaccine <65 Aged Out No longer eligible based on patient's age to complete this topic Procedures Procedure Name Priority Date/Time Associated Diagnosis Comments MRI BRAIN W WO CONTRAST Schedule ASHLEY, Read Routine (Patient lives out of area) 04/26/2024 1:48 PM GREEN MARKETING ANALYST Multiple sclerosis (HCC) from Last 3 Months Results * MRI Brain W WO Contrast (04/26/2024 1:48 PM GREEN MARKETING ANALYST) Anatomical Region Laterality Modality Head and Neck N/A Magnetic Resonan ce 04/26/2024 2:10 PM GREEN MARKETING ANALYST Narrative 04/26/2024 2:17 PM GREEN MARKETING ANALYST EXAM DESCRIPTION: ?? MRI BRAIN W WO [...] PM T: ??04/26/2024 2:17 PM Report ID: [id number] Reading Location: ??[id number] Procedure Note Jett Patterson MD - 04/26/2024 [...] Jett Patterson M.D. VINCENT: VINCENT Report ID: [id number] Reading Location: [id number] Tai Coon MD IMG MRI PROCEDURES Kera l Result from Last 3 Months Insurance [facility] Care Teams Rehabilitator Relationship Specialty Start Date End Date Adria Llanos NP [address] [place] [address] PCP - General Family Medicine 11/23/23
--- OUTSIDE RECORDS SUMMARY | 2024-05-01 00:10 | XMS_ITS | Encounter Summary ---
Author Organization [facility] Healthcare Address [address] [place] [id number] Care Team Providers Care Operations Associate Name Role Phone Adria Llanos NP Primary Care Provider [phone] Reason for Referral * MRI/CAT/PET Scan (Routine) - Closed Specialty Diagnoses / Procedures Referred By Hamida butt Referred To Contact Radiology Diagnoses Multiple sclerosis (HCC) Procedures MRI Brain W WO Contrast Tai Cono MD [address] [place] [address] [address] [place] [address] Phone: tel: fax: [address] [phone] Referral ID Status Reason Start Date Expiration Date Visits Re quested Visits Authorized [id number] Closed 03/23/2024 05/22/2024 1 1 COLLECTOR Reason for Visit * Consultation (Routine) - Closed Specialty Diagnoses / Procedures Referred By Hamida butt Referred To Contact Neurology Diagnoses Cervicalgia Anesthesia of skin Miscellaneous, Not In File Tai Coon MD [address] [place] [address] [address] [place] [address] Phone: tel: fax: Referral ID Status Reason Start Date Expiration Date V isits Requested Visits Authorized [id number] Closed Specialty Services Required 11/23/2023 12/22/2024 1 1 Encounter Details Date Type Department Care Team (Late st Contact Info) Description 03/22/2024 9:00 AM SEED COLLECTOR Office Visit [facility] [address] [place] [address] Tai Coon MD [address] [place] [address] [address] [place] [address] Cervicalgia; Multiple sclerosis (HCC) Social History Tobacco Use Types Packs/Day Years Used Date Smoking Tobacco: Former Cigarettes Tobacco Cessation:Counseling Given: Not Answered Sex and Gender Information Value Date Recorded Sex Assigned at Not on file Legal Sex Male 1:24 PM CDT Gender Identity Male 03/22/2024 9:32 AM SEED COLLECTOR Sexual Orientation Asexual 03/22/2024 9: 32 AM SEED COLLECTOR documented as of this encounter Last Filed Vital Signs Vital Sign Reading Time Taken Comments Blood Pressure - - Pulse 89 03/22/2024 9:03 AM SEED COLLECTOR Temperature - - Respiratory Rate 18 03/22/2024 9:03 AM SEED COLLECTOR Oxygen Saturation 97% 03/22/2024 9:03 AM SEED COLLECTOR Inhaled Oxygen Concentration - - Weight 146.7 kg (323 lb 6.4 oz) 03/22/2024 9:03 AM SEED COLLECTOR Height 188 cm (6' 2 ) 03/22/2024 9:03 AM SEED COLLECTOR Body Mass Index 41.52 03/22/2024 9:03 AM SEED COLLECTOR documented in this encounter Progress Notes * Tai Coon MD - 03/22/2024 9:00 AM CST Subjective/Objective Patient ID: Ben Menendez is a 28 y.o. male. Chief Complaint I am seeing this 28 y.o. male in consultation requested by TINO Busch for multiple sclerosis. HPI He saw a female neurologist (Dr. Arcelia Thomson at [facility], [place], [place]) about 2-3 years ago in [place]. He was having numbness on left side at that time. It was associatedwith some trouble to move left lower extremity. It happened about one month before he saw his neurologist about 2-3 years ago. It was continuous and lasted for about one month, then went away. It never comes back. He did not have other concerning symptoms happened after that. He saw the neurologist3 times before she left the practice. She did not word multiple sclerosis to him at that time. Hemoved to this area and saw his current family physician who got medical region from his previous neurologist. One of the note mentioned that he might have multiple sclerosis . He had MRI of brain. No acute visual disturbance or focal weakness of extremities. Chart review: 11/18/2023 office visit note from referral record: Patient reported that he has been having lower back pain in tailbone region for about 6-7 years. There was constant pain from lower leg going up to hip. He was treated with Aleve 800 mg t.i.d.. No past medical history on file. Allergies Allergen Reactions Mold Hives Tetrahydrocannabinol (Thc) Other (See comments) Shaking Current Outpatient Medications Medication Sig Dispense Refill ergocalciferol (VITAMIN D) 50,000 unit capsule escitalopram (LEXAPRO) 10 mg tablet TAKE 1 TAB ORALLY DAILY FOR 10 WEEKS milk thistle 150 mg capsule Take by mouth mupirocin (BACTROBAN) 2 % ointment APPLY AROUND NAILBED OF BOTH BIG TOES TWICE DAILY FOR 2 WEEKS. No current facility-administered medications for this visit. has a current medication list which includes the following prescription(s): ergocalciferol, escitalopram, milk thistle, and mupirocin. Family History Problem Relation Age of Onset Diabetes Mother Social History Tobacco Use Smoking status: Former Types: Cigarettes Smokeless tobacco: None Substance and Sexual Activity Drug use: None Sexual activity: None Alcohol Use: Not on file Pulse 89 Resp 18 Ht 188 cm (6' 2 ) Wt (!) 146.7 kg (323 lb 6.4 oz) SpO2 97% BMI 41.52 kg/m?? Physical examination: Mental status: alert, speech fluent, comprehension intact, Follow command appropriately. Patient is fully oriented. Cranial nerve: DONITA, corneal reflex present. EOMI. VFF by confrontation method. Face symmetrical. Motor: bulk normal, tone normal, pronator drift negative. Strength 5/5. No abnormal movement. Coordination: FTN normal Reflexes: Biceps 2+ b/l, Knee reflex 2+ b/l, Achilles reflex 2+ b/l. Plantar reflexes downward bilaterally Sensation: LT Normal and symmetrical. Gait: Normal Assessment/Plan I am seeing this 28 y.o. male in consultation requested by TINO Busch for multiple sclerosis. It was mentioned in his previous neurologist note according to patient. I did not have the records to review. Diagnoses and all orders for this visit: Multiple sclerosis (HCC) - MRI Brain W WO Contrast; Future - Instructed patient to call after MRI for further instruction. Review of investigations: 1. 10/06/2022 portable outpatient video EEG monitoring: Normal awake, drowsy and brief light sleep EEG 2. 11/05/2022 MRI of the brain with/without: Posterior left frontal juxtacortical white matter lesion. Several pericallosal lesions greater within the right parietal and posterior frontal location. Deep white matter lesion over left parietal. Right thalamic lesion is present. Right cerebellar lesion. Subtle paramagnetic T1 hyperintensity within the right pericallosal region. Posterior right frontal lesion measuring up to 1 cm exit be T1 hypointensity. 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 No abnormal enhancing lesion noted. 3. 09/30/2022 MRI of the brain without: No acute intracranial process. Small foci of increased T2/FLAIR signal within periventricular and subcortical white matter which could be secondary to vasculopathy such as migraine disorder, hypotension, vasculitis. Prior infection with subsequent gliosis or autoimmune disorder. COLLECTOR documented in this encounter Plan of Treatment Not on file documented as of this encounter Results * MRI Brain W WO Contrast (04/26/2024 1:48 PM SEED COLLECTOR) Anatomical Region Laterality Modality Head and Neck N/A Magnetic Resonan ce 04/26/2024 2:10 PM SEED COLLECTOR Narrative 04/26/2024 2:17 PM SEED COLLECTOR EXAM DESCRIPTION: ?? MRI BRAIN W WO [...] PM T: ??04/26/2024 2:17 PM Report ID: [id number] Reading Location: ??[id number] Procedure Note Jett Patterson MD - 04/26/2024 [...] Jett Patterson M.D. VINCENT: VINCENT Report ID: [id number] Reading Location: [place] [address] Tai Coon MD IMG MRI PROCEDURES Kera l Result documented in this encounter Visit Diagnoses Diagnosis Cervicalgia Multiple sclerosis (HCC) Multiple sclerosis Multiple sclerosis (HCC) Multiple sclerosis documented in this encounter Historical Medications * This list may reflect changes made after this encounter. milk thistle 150 mg capsule Take by mouth ergocalciferol (VITAMIN D) 50,000 unit capsule 03/14/2024 escitalopram (LEXAPRO) 10 mg tablet TAKE 1 TAB ORALLY DAILY FOR 10 WEEKS 02/16/2024 mupirocin (BACTROBAN) 2 % ointment APPLY AROUND NAILBED OF BOTH BIG TOES TWICE DAILY FOR 2 WEEKS. 01/25/2024 added in this encounter Orders Outpatient Referral Count Last Ordered Date Fir st Ordered Date AMB REFERRAL TO NEUROLOGY 1 03/22/2024 documented in this encounter Care Teams Operations Associate Relationship Specialty Start Date End Date Adria Llanos NP [address] [place] [address] PCP - General Family Medicine 11/23/23 documented as of this encounter
[2024-05-01 04:14] LABS: Vitamin D 25 Hydroxy 27 ng/mL (30-100)
== END 2024-04-27 14:58 | disposition home or self-care (01) ==
LOC: CHSLAB 14:59
PROVIDERS: PCP Nurse Practitioner Family; Visit Provider Nurse Practitioner Family
DX: E55.9 Vitamin D deficiency, unspecified (principal); E78.00 Pure hypercholesterolemia, unspecified; R74.8 Abnormal levels of other serum enzymes
CPT/HCPCS: 36415; 72070; 73110; 80053; 80061; 82306

== ENCOUNTER 2024-05-14 07:14 | Outpatient (CLI) | payer OTHER, SELFPAY ==
--- NOTE | ~2024-05-14 | US_ITS ---
Abdominal Sonogram: Real-time sonographic imaging of the abdomen was performed. Clinical History: Abnormal serum enzyme levels Findings: The liver appears mildly echogenic, with no evidence of mass lesion or bile duct dilatatio n. Main portal vein demonstrates normal direction of flow. The spleen is normal in size without evide nce of focal lesion. The gallbladder is well distended, and appears normal with no evidence of galls tone or wall thickening. The common bile duct measures 3 mm. The visualized pancreas, aorta, and IVC are unremarkable. The right kidney measures 12.7 cm in length and the left kidney measures 13.4 cm. There is no hydronephrosis or renal calculus. Impression: Probable mild fatty infiltration of liver. Reviewed, dictated and finalized at [facility]. QUALITY TECH Impression: Probable mild fatty infiltration of liver.
--- NOTE | ~2024-05-14 | US_ITS ---
EXAMINATION: US soft tissue UE LT DATE: 05/14/2024 07:44 INDICATION: Left wrist lump TECHNIQUE: Multiple grayscale and Doppler ultrasound images of the region of concern at the left hand and wrist along the proximal third and fourth metacarpals were obtained. COMPARISON: None FINDINGS/IMPRESSION: 13 x 10 x 7 mm anechoic likely ganglion cyst in the subcutaneous tissues between 2 bones at the regio n of concern which is described as between the third and fourth metacarpals. Reviewed, dictated and finalized at location B. A PROMOTER
== END 2024-05-14 07:15 | disposition home or self-care (01) ==
LOC: CHSIMG 07:14
PROVIDERS: PCP Nurse Practitioner Family; Visit Provider Nurse Practitioner Family
DX: M71.332 Other bursal cyst, left wrist (principal); R74.8 Abnormal levels of other serum enzymes
CPT/HCPCS: 76700; 76882

== ENCOUNTER 2024-05-15 15:57 | Emergency (ER) | payer OTHER, SELFPAY ==
[2024-05-15] VITALS (18 sets, daily range): BP systolic 113–157; BP diastolic 69–96; PULSE 64–90; RESP 0–23; TEMP 36.6; O2SAT 96–99
--- NOTE | ~2024-05-15 | XR_ITS ---
EXAMINATION: XR chest 1V portable Exam Date/Time: 05/15/2024 16:27 ENDODONTIC ASSISTANT HISTORY: chest pain Comparison: 07/08/2023. RESULT: Lines, tubes, and devices: None. Lungs and pleura: Clear. Cardiomediastinal silhouette: Stable. Other: No acute osseous or upper abdominal finding. IMPRESSION: No acute cardiopulmonary process. Reviewed, dictated and finalized at location K. DONTIC ASSISTANT
--- NOTE | 2024-05-15 16:23 | ED.CHESTPAIN ---
HPI - Chest Pain General Chief Complaint: Chest Pain Stated Complaint: CHEST PAIN Time Seen by Provider: 05/15/24 16:08 Source: patient Mode of arrival: ambulatory Limitations: no limitations History of Present Illness HPI narrative: 28-year-old male with chest pain. Patient said last night around 8:00 p.m. he has sharp chest pain her short of breath and nauseated he thought he was having a panic attack because he was paranoid about his job and he is feeling overwhelmed. Denies any vomiting or diaphoresis. This morning when he woke up his chest was sore but seemed to go away and then 15 minutes prior to admission started having some shortness of breath without any cough sore throat or runny nose. Retrosternal chest pain nonradiating denies any rash or itching dizziness or lightheadedness bleeding or bruising swelling lumps or bumps denies any back pain that was changed she has chronic arthritis use lidocaine patches for this. Denies any leg pain he has had some right shoulder pain but none now. The pain is right shoulder has been tender for last 2 days if he pushes on it. His chest pain now is described as pressure 5/10 retrosternal nonradiating. Does not have any history of heart disease or lung disease kidney or liver disease he has been diagnosed with MS hypertension he has no history of venous thromboembolism thyroid abnormalities diabetes hyperlipidemia he has had history of panic attacks anxiety depression. Is got a ganglion cyst on his left wrist. He is eating and drinking voiding and stooling fine and denies any other complaints. Allergies none . Related Data Allergies Allergy/AdvReac Type Severity Reaction Status Date / Time tetrahydrocannabinol (THC) Allergy Severe Muscle Verified 05/15/24 16:17 Spasms tree and shrub pollen Allergy Mild Other Verified 05/15/24 16:17 black mold Allergy Mild Other Uncoded 05/15/24 16:17 soda AdvReac Intermediate hives Uncoded 05/15/24 16:17 Review of Systems Review of Systems: All systems reviewed & are unremarkable except as noted in HPI and below PMFSH Past Medical History Medical History Onychomycosis Anxiety and depression Vitamin D deficiency Abnormal MRI of head Elevated liver enzymes Elevated cholesterol Cervicalgia Hypertension 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 Family History Family History Mother Diabetes mellitus Social History Social History Smoking status: Former smoker Alcohol intake: current Alcohol use details: reports may have a shot to get to bed every few weeks, otherwise does not drink Do You Feel Safe in your Home?: Yes Lack of Transportation: No Lack of Food: Never True Current Housing: I Have Housing Concerned About Future Housing: No Difficulty Paying Gas/Electric Bills: No Difficulty Paying for Meds: No Currently Unemployed: No Education: High School Diploma/GED Difficulty w/ Childcare or Family Care: No Living arrangements: with family Occupation/Education: occupation Additional occupation/education comments: [employer] Gender identity (if verbalized by the patient): Male Sexual Orientation (if Verbalized by the Patient): Straight or Heterosexual Exam Narrative: ?White male patient with no apparent distress Except mildly anxious.? Head normocephalic, atraumatic.? Eyes conjunctiva pink sclera nonicteric.? Extraocular movements are intact.? Ears externally normal.? Oropharynx is clear with moist mucous membranes without exudates.? Neck is supple nontender no lymphadenopathy.? Back is nontender.? Lungs are clear.? Heart is regular rate and rhythm without murmurs gallops or rubs.? Chest wall nontender. Abdomen is soft and nontender no hepatosplenomegaly or masses no CVA tenderness no abdominal bruits.? Extremities no cyanosis clubbing or edema.? Skin is warm and dry without rashes or lesions.? Neurological patient is alert and oriented x4.? Motor and sensory grossly intact.? Gait is normal. Course Vital Signs Vital signs: Vital Signs Temperature 36.6 C 05/15/24 16:08 Pulse Rate 89 05/15/24 16:08 Respiratory Rate 20 05/15/24 16:08 Blood Pressure 147/90 H 05/15/24 16:08 Pulse Oximetry 97 05/15/24 16:08 Oxygen Delivery Room Air 05/15/24 16:08 Temperature 36.6 C 05/15/24 16:08 Pulse Rate 78 05/15/24 19:16 Respiratory Rate 20 05/15/24 19:16 Blood Pressure 128/70 05/15/24 19:16 Pulse Oximetry 98 05/15/24 19:16 Oxygen Delivery Room Air 05/15/24 19:16 MDM - Chest Pain MDM Narrative Medical decision making narrative: Patient placed in room: to ? History and physical was performed. chest x-ray showed no active disease Normal D-dimer troponin and 2 hour troponin and BNP coags CBC and CMP except for an ALT of 109 Independent Historian: External Source Review: Differential Dx includes but not limited to: panic attack anxiety atypical chest pain acute coronary syndrome Medications were Reviewed: home meds reviewed Medications given: 4 mg morphine aspirin 324 chewable Independently Interpreted by me: EKG shows sinus rhythm with marked sinus arrhythmia T-wave inversions in V4 through V 6 AVF lead 3 in 2 suggesting inferior lateral ischemia impression abnormal EKG as independently interpreted by me. EKG done at 7:17 p.m. shows sinus rhythm with sinus arrhythmia At a rate of [address] T wave changes but resolution of the T-wave inversions in V4 through V6 AVF lead 3 impression abnormal EKG as independently interpreted by me. Shared decision Making: evaluation was discussed with patient his all questions were asked and answered they agreed with the plan. follow-up with primary care provider to discuss further evaluation treatment. Social Situation Impacting Patients Care: Discussed with Dr. SANON DIAGNOSIS: Atypical chest pain anxiety DISPOSITION : discharge home CONDITION AT DISCHARGE: Stable Lab Data 05/15/24 16:37 05/15/24 16:36 Labs: Lab Results 05/15/24 05/15/24 05/15/24 Range/Units 16:36 16:37 18:28 WBC 10.2 (4.8-10.8) K/mm3 RBC 5.40 (4.70-6.10) M/mm3 Hgb 15.9 (14.0-18.0) g/dL Hct 46.6 (40.0-54.0) % MCV 86.3 (78.0-102.0) fL MCH 29.4 (27.0-31.0) pg MCHC 34.1 (32-36) g/dL RDW 12.1 (11.6-14.4) % Plt Count 303 (150-420) K/mm3 MPV 10.1 (8.7-11.0) fl Immature Gran % (Auto) 0.3 H (0.0-0.0) % Neut % (Auto) 58.5 (50.0-70.0) % Lymph % (Auto) 30.7 (18.0-42.0) % Travis % (Auto) 8.7 (2.0-11.0) % Eos % (Auto) 1.2 (1.0-6.0) % Baso % (Auto) 0.6 (0.0-1.0) % Lymph # (Auto) 3.14 (1.10-4.50) K/mm3 Travis # (Auto) 0.89 (0.10-0.90) K/mm3 Eos # (Auto) 0.12 (0.02-0.50) K/mm3 Baso # (Auto) 0.06 (0.00-0.10) K/mm3 Abs Immat Gran (auto) 0.03 H (0.00-0.00) K/mm3 Absolute Neuts (auto) 6.00 (1.70-7.20) K/mm3 Absolute Nucleated RBC 0.00 (0.00-0.00) K/mm3 Nucleated RBC % 0.0 (0-0.0) % PT 11.4 (9.50-12.1) Seconds INR 1.0 APTT 28.8 (23.9-30.70) Sec D-Dimer 0.19 (0.19-0.50) mg/L Sodium 142 (136-145) mmol/L Potassium 3.9 (3.5-5.1) mmol/L Chloride 103 (98-108) mmol/L Carbon Dioxide 28 (21-32) mmol/L Anion Gap 11 (4-12) mmol/L BUN 10 (7-18) mg/dL Creatinine 0.96 (0.70-1.30) mg/dL Estim Creat Clear Calc 159 ml/min Estimated GFR > 60 (59 - ) Glucose 102 H (70-99) mg/dL Calculated Osmolality 293 (285-295) mOsm/kg Calcium 9.3 (8.5-10.1) mg/dL Total Bilirubin 0.7 (0.00-1.00) mg/dL AST 37 (15-37) U/L ALT 109 H (16-63) U/L Alkaline Phosphatase 82 (46-116) U/L Troponin I 35.6 34.8 (0.00-60.4) ng/L NT-Pro-B Natriuret Pep < 11 (0-125) pg/mL Total Protein 7.5 (6.4-8.2) g/dL Albumin 4.0 (3.4-5.0) g/dL Discharge Plan Discharge Clinical Impression: Atypical chest pain Patient Disposition: Home, Self-Care Condition: Stable Instructions: Chest Pain (ED) Additional Instructions: follow-up with your primary care provider this week return if you get worse or develops any new symptoms. Patient Language: Hungarian Prescriptions: No Action gabapentin 300 mg capsule 300 mg PO QHS PRN (Reason: neuropathy) Qty: 30 1RF lidocaine 5 % adhesive patch,medicated 2 patch topical DAILY Qty: 30 0RF Rx Instructions: leave on most painful area for up to 12 hrs epinephrine [EpiPen] 0.3 mg/0.3 mL auto-injector 0.3 mg IM ONCE Qty: 2 1RF Rx Instructions: as a single dose; may repeat dose after 5-15 minutes if symptoms persist ergocalciferol (vitamin D2) [Vitamin D2] 1,250 mcg (50,000 unit) capsule 1,250 mcg PO WEEKLY Qty: 8 0RF Rx Instructions: please take once weekly for 8 weeks total, then follow up for lab draw. Follow-up/Referrals: Adria Llanos APRN [Primary Care Provider] - Time of Disposition: 19:48
--- NOTE | 2024-05-15 16:24 | ECG_ITS ---
Test Date: 2024-05-15 16:12:41 Measurements Intervals [place] Rate: 72 P: 30 ME: 126 QRS: 66 QRSD: 105 T: 239 QT: 360 QTc: 395 Interpretive Statements SINUS RHYTHM WITH MARKED SINUS ARRHYTHMIA MODERATE T-WAVE ABNORMALITY, CONSIDER LATERAL ISCHEMIA [-0.1+ mV T-WAVE IN I/aVL/V5/V6] MODERATE T-WAVE ABNORMALITY, CONSIDER INFERIOR ISCHEMIA [-0.1+ mV T-WAVE IN II/aVF] No previous ECG available for comparison Electronically Signed On 05-15-2024 22:39:53 INGOT CAR OPERATOR by Marquis Montalvo M.D.
[2024-05-15 16:41] LABS: Basophils Absolute Auto 0.06 K/mm3 (0.00-0.10); Basophils Percent Auto 0.6 % (0.0-1.0); Eosinophils Absolute Auto 0.12 K/mm3 (0.02-0.50); Eosinophils Percent Auto 1.2 % (1.0-6.0); Hematocrit 46.6 % (40.0-54.0); Hemoglobin 15.9 g/dL (14.0-18.0); Immature Granulocyte Absolute 0.03 K/mm3 (0.00-0.00); Immature Granulocyte Percent A 0.3 % (0.0-0.0); Lymphocytes Absolute Auto 3.14 K/mm3 (1.10-4.50); Lymphocytes Percent Auto 30.7 % (18.0-42.0); Mean Corpuscular HGB Conc 34.1 g/dL (32-36); Mean Corpuscular Hemoglobin 29.4 pg (27.0-31.0); Mean Corpuscular Volume 86.3 fL (78.0-102.0); Mean Platelet Volume 10.1 fl (8.7-11.0); Monocytes Absolute Auto 0.89 K/mm3 (0.10-0.90); Monocytes Percent Auto 8.7 % (2.0-11.0); Neutrophils Percent Auto 58.5 % (50.0-70.0); Platelet Count Result 303 K/mm3 (150-420); Red Cell Distribution Width 12.1 % (11.6-14.4); White Blood Count 10.2 K/mm3 (4.8-10.8)
[2024-05-15 16:56] LABS: Partial Thromboplastin Time 28.8 Sec (23.9-30.70); Prothrombin Time 11.4 Seconds (9.50-12.1)
[2024-05-15 16:57] LABS: D Dimer 0.19 mg/L (0.19-0.50)
[2024-05-15 17:03] LABS: Alanine Aminotransferase 109 U/L (16-63); Alkaline Phosphatase 82 U/L (46-116); Anion Gap 11 mmol/L (4-12); Aspartate Amino Transferase 37 U/L (15-37); Bilirubin,Total 0.7 mg/dL (0.00-1.00); Blood Urea Nitrogen 10 mg/dL (7-18); Calcium 9.3 mg/dL (8.5-10.1); Carbon Dioxide 28 mmol/L (21-32); Chloride 103 mmol/L (98-108); Estimated CRCL calculation 159 ml/min; Estimated Glomerular Filt Rate > 60; Glucose 102 mg/dL (70-99); NT Pro B Type Natriuretic Pept < 11 pg/mL (0-125); Osmolality Calculated 293 mOsm/kg (285-295); Potassium 3.9 mmol/L (3.5-5.1); Sodium 142 mmol/L (136-145); Total Protein 7.5 g/dL (6.4-8.2); Troponin I 35.6 ng/L (0.00-60.4)
[2024-05-15] MEDS: LORazepam (*CRX) 1 MG TABLET PO (17:07)
[2024-05-15] MEDS: ASPIRIN 81 MG CHEWABLE TABLET 324 MG PO (17:07)
[2024-05-15] MEDS: MORPHINE SULFATE (*CRX) 4 MG/ML INJ IV PUSH (17:08)
[2024-05-15] MEDS: ONDANSETRON INJ 4 MG/2 ML VIAL IV PUSH (18:08)
[2024-05-15 18:57] LABS: Troponin I 34.8 ng/L (0.00-60.4)
--- NOTE | 2024-05-15 19:09 | ECG_ITS ---
Test Date: 2024-05-15 19:17:27 Measurements Intervals [place] Rate: 78 P: 9 GA: 132 QRS: 16 QRSD: 120 T: 153 QT: 359 QTc: 411 Interpretive Statements SINUS RHYTHM WITH SINUS ARRHYTHMIA MODERATE INTRAVENTRICULAR CONDUCTION DELAY [110+ ms QRS DURATION] NONSPECIFIC ST & T-WAVE ABNORMALITY Compared to ECG 05/15/2024 16:12:41 Intraventricular conduction delay now present Possible ischemia no longer present Electronically Signed On 05-15-2024 22:35:55 LOAN SECRETARY by Marquis Montalvo M.D.
== END 2024-05-15 19:53 | disposition home or self-care (01) ==
PROVIDERS: Emergency Provider Emergency Medicine; PCP Nurse Practitioner Family
DX: R07.89 Other chest pain (principal); Z87.891 Personal history of nicotine dependence
CPT/HCPCS: 36415; 71045; 80053; 83880; 84484; 85025; 85380; 85610; 85730; 93005; 96374; 96375; 99284; A9270; J2270; J2405

== ENCOUNTER 2024-05-17 15:10 | Outpatient (RCR) | payer OTHER, SELFPAY ==
--- NOTE | 2024-05-17 15:58 | OPREHPOC ---
Outpatient Therapy Plan of Care This is a Multidisciplinary Plan of Care that may contain components documented by all disciplines (PT, OT, and ST.) PT Problem 1 PT Problem #1 Knowledge Deficit PT Goal 1 Goal / Goal Update 1. independent and compliant with HEP Target Visit 6 PT Problem 2 PT Problem #2 Pain PT Goal 1 Goal / Goal Update 1. decrease pain at worst to 2/10 or less in the lumbar spine Target Visit 12 PT Problem 3 PT Problem #3 Impaired Range of Motion PT Goal 1 Goal / Goal Update 1. 100% active lumbar mobility in all directions without pain or hesitation Target Visit 12 PT Problem 4 PT Problem #4 Impaired Strength PT Goal 1 Goal / Goal Update 1. improve core strength to 3+/5 or better overall 2. 5/5 bilateral LE strength overall Target Visit 12 PT Problem 5 PT Problem #5 Impaired Functional Mobility PT Goal 1 Goal / Goal Update 1. oswestry to display 10% or less functional deficits 2. patient to squat and safely lift 40lbs from floor to waist without pain 3. patient to return to sleeping through the night without being woken up due to pain in the lower back Target Visit 12
--- NOTE | 2024-05-17 15:58 | PTOPEVAL1 ---
Assessment and note entered by JT File, PT Evaluation Information Assessment Status Evaluation Diagnosis spondylosis without myelopathy or radiculopathy ICD-10 Condition Codes (PT) Pain in low back M54.50 Other ICD-10 Condition Codes ( M47.814 PT) Onset 05/03/24 Subjective Information patient reports he is being referred to PT by his PCP due to pain in the back. he slipped and fell on ice last week at a [employer]. he reports he started having pain in the back immediately. he reports xrays were negative. he reports no other imaging of the lumbar spine at this time. he reports he has increased pain with general movement. he reports he has worse pain when laying flat on his back, and better as he is moving. he reports he gets no pain down his legs. 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 he reports he return to see his PCP this coming tuesday. Reported Pain Level Pain Score 4: Self Report Assessment PT Clinical Summary mr. reynoso is a 28 yo man who presents to skilled PT services for evaluation and treatment of lower back pain following a fall on ice at [facility]. he presents today with decreased lumbar rom, mm tightness of the hips, and weakness of the core and LE's. his pain is not reproducible with SLR or XSLR testing indicating a lack of lumbar disc injury at this time. he likely suffers from a strain to the muscles of the lumbar spine from the fall in combination with his core and hip weakness creating a lack of stability and pain. he would benefit from continued skilled PT to address the objective/functional deficits listed above to improve his quality of life and return to prior level functional activity performance. Plan of Care Interventions Electrical Stimulation,Hot Pack/Cold Pack,Manual Therapy,Neuro Re-education,Patient/Caregiver Education,Therapeutic Activities,Therapeutic Exercise,Other Other Interventions dry needling PT Services Indicated Yes Treatment Frequency and 2x weekly for 10 visits Duration These treatments will address the objective and functional deficits as defined above. The patient will be advanced safely and appropriately in order for the patient to progress towards his/her prior level of function. Additional exercises will be introduced and as well as a comprehensive home exercise program upon discharge, if needed, ?to ensure carryover of functional gains achieved in the clinic. This treatment plan has been reviewed and agreement upon by the patient.
--- NOTE | 2024-05-31 17:28 | PCPTNOTE ---
Patient called & wants to hold therapy at this time due to panic attacks.
== END 2024-08-15 23:59 | disposition home or self-care (01) ==
LOC: CHSPT 15:10
PROVIDERS: Visit Provider Nurse Practitioner Family
DX: M47.814 Spondylosis without myelopathy or radiculopathy, thoracic region (principal)
CPT/HCPCS: 97014; 97110; 97140; 97161; G0283

== ENCOUNTER 2024-12-03 09:16 | Outpatient (CLI) | payer OTHER, SELFPAY ==
--- OUTSIDE RECORDS SUMMARY | 2024-12-03 09:22 | XMS_ITS | Referral Summary ---
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) from Last 3 Months Allergies Active Allergy Reactions Criticality Noted Date Comments Mold Hives Medium 03/22/2024 Tetrahydrocannabinol (Thc) Other (See comments) Low 03/22/2024 Shaking Medications escitalopram (LEXAPRO) 10 mg tablet TAKE 1 TAB ORALLY DAILY FOR 10 WEEKS 02/16/2024 Active ergocalciferol (VITAMIN D) 50,000 unit capsule 03/14/2024 Active milk thistle 150 mg capsule Take by mouth Active dimethyl fumarate 240 mg capsule,delayed release(DR/EC) Take 1 capsule (240 mg total) by mouth 2 (two) times a day 60 capsule 11 07/13/2024 Active Active Problems Problem Noted Date Diagnosed Date Complex partial seizures alonzo lving to generalized tonic-clonic seizures 10/09/2024 Vitamin D deficiency 07/10/2024 Chronic midline low back pain without sciatica 0 07/10/2024 Multiple sclerosis 03/22/2024 Social History Tobacco Use Types Packs/Day Years Used Date Smoking Tobacco: Former Cigarettes Tobacco Cessation:Counseling Given: Not Answered Personal Safety Answer Date Recorded Have you ever been in or are you currently in a harmful physical or emotional relationship or is someone making you feel afraid or unsafe? Denies 06/20/2024 Sex and Gender Information Value Date Recorded Sex Assigned at Not on file Legal Sex Male 1:24 PM CDT Gender Identity Male 03/22/2024 9:32 AM RECONCILEMENT CLERK Sexual Orientation Asexual 03/22/2024 9: 32 AM RECONCILEMENT CLERK Last Filed Vital Signs Vital Sign Reading Time Taken Comments Blood Pressure 151/93 07/26/2024 10:46 AM CDT Pulse 97 07/26/2024 10:46 AM CDT Temperature 36.3 C (97.3 F) 06/20/2024 8:40 AM RECONCILEMENT CLERK Respiratory Rate 18 06/20/2024 9:40 AM RECONCILEMENT CLERK Oxygen Saturation 97% 07/26/2024 10:46 AM CDT Inhaled Oxygen Concentration - - Weight 152.4 kg (336 lb) 07/26/2024 10:46 AM CDT Height 188 cm (6' 2.02) 07/26/2024 10:46 AM CDT Body Mass Index 43.12 07/26/2024 10:46 AM CDT Plan of Treatment Not on file Insurance Advance Directives For more information, please contact: [phone] * Full Code (Latest Code Status on File) Date Activated Date Inactivated Comments 06/20/2024 9:37 AM 06/21/2024 5:29 AM Care Teams Hypertrichologist Relationship Specialty Start Date End Date Adria Llanos NP [address] [place] [address] PCP - General Family Medicine 07/03/24
--- OUTSIDE RECORDS SUMMARY | 2024-12-03 09:22 | XMS_ITS | Clinical Summary ---
Author Organization [facility] Building [address] Address [address] [place] [address] Care Team Providers Care Paperhanger Name Role Phone Adria Llanos NP Primary Care Provider [phone] Allergies Active Allergy Reactions Criticality Noted Date [...] without sciatica 0 07/10/2024 Multiple sclerosis 03/22/2024 Encounters Date Type Department Care Team Description 10/09/2024 11:15 AM CDT Telemedicine [facility] [address] [facility] [address], [place] [address] Tai Coon MD Multiple sclerosis (HCC) (Primary Dx); Chronic midline low back pain without sciatica; Vitamin D deficiency; 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) from Last 3 Months Surgical History Surgery Date Site/Laterality Comments FL FLUORO GUIDED LUMBAR PUNCTURE 06/20/2024 Right Family History Medical History Relation Name Comments [...] CDT Gender Identity Male 03/22/2024 9:32 AM FIELD MERCHANDISER Sexual Orientation Asexual 03/22/2024 9: 32 AM FIELD MERCHANDISER Obstetrics History Last Filed Vital Signs Vital Sign Reading Time Taken Comments Blood Pressure 151/93 07/26/2024 10:46 AM CDT Pulse 97 07/26/2024 10:46 AM CDT Temperature 36.3 C (97.3 F) 06/20/2024 8:40 AM FIELD MERCHANDISER Respiratory Rate 18 06/20/2024 9:40 AM FIELD MERCHANDISER Oxygen Saturation 97% 07/26/2024 10:46 AM CDT Inhaled Oxygen Concentration - - Weight 152.4 kg (336 lb) 07/26/2024 10:46 AM CDT Height 188 cm (6' 2.02) 07/26/2024 10:46 AM CDT Body Mass Index 43.12 07/26/2024 10:46 AM CDT Plan of Treatment Health Maintenance Due Date Last Done Comments Depression Screening 1997 Hepatitis C Screening 1997 DTaP/Tdap/Td Vaccine (1 - Tdap) 2008 Varicella Vaccines (1 of 2 - 13+ 2-dose series) 2010 Hepatitis B Screening 10/16/2015 Regular Well Visit/Exam 18-64 10/16/2015 Influenza Vaccine (#1) 2025 HPV Vaccines Aged Out No longer eligi ble based on patient's age to complete this topic Pneumococcal vaccine <65 Aged Out No longer eligible based on patient's age to complete this topic [facility] Subscriber Plan / Payer (Ef fective 2023-Present) Name:Ben Menendez Relation to Subscriber:Self Name:Ben Menendez Payer ID:[id number] (NAIC) Group ID:Not on file Type:MEDICAID RISK OTHER Address: [facility] [id number] [place] [id number] Advance Directives For more information, please contact: [phone] * Full Code (Latest Code Status on File) Date Activated Date Inactivated Comments 06/20/2024 9:37 AM 06/21/2024 5:29 AM Care Teams Paperhanger Relationship Specialty Start Date End Date Adria Llanos NP [address] [place] [address] PCP - General Family Medicine 07/03/24
[2024-12-03 09:27] LABS: Hematocrit 45.4 % (40.0-54.0); Hemoglobin 15.5 g/dL (14.0-18.0); Immature Granulocyte Percent A 0.4 % (0.0-0.0); Mean Corpuscular HGB Conc 34.1 g/dL (32-36); Mean Corpuscular Hemoglobin 30.3 pg (27.0-31.0); Mean Corpuscular Volume 88.8 fL (78.0-102.0); Nucleated Red Blood Cells Absolute Auto 0.00 K/mm3 (0.00-0.00); Nucleated Red Blood Cells Perc 0.0 % (0-0.0); Platelet Count Result 266 K/mm3 (150-420); Red Blood Count 5.11 M/mm3 (4.70-6.10); White Blood Count 9.0 K/mm3 (4.8-10.8)
[2024-12-03 09:28] LABS: Lymphocytes Absolute Auto 3.83 K/mm3 (1.10-4.50)
[2024-12-03 10:07] LABS: Alanine Aminotransferase 199 U/L (6-50); Albumin Level 4.5 g/dL (3.5-5.1); Alkaline Phosphatase 55 U/L (38-126); Anion Gap 7 mmol/L (4-12); Aspartate Amino Transferase 81 U/L (17-59); Bilirubin,Total 1.3 mg/dL (0.2-1.3); Blood Urea Nitrogen 12 mg/dL (9-20); Calcium 9.5 mg/dL (8.4-10.2); Carbon Dioxide 28 mmol/L (22-30); Chloride 103 mmol/L (98-107); Cholesterol 247 mg/dL (0-200); Estimated Glomerular Filt Rate > 60; Glucose 100 mg/dL (65-110); HDL Direct 43 mg/dL; Osmolality Calculated 285 mOsm/kg (285-295); Potassium 4.4 mmol/L (3.4-5.0); Sodium 138 mmol/L (137-145); Total Protein 7.3 g/dL (6.3-8.2); Triglycerides 253 mg/dL (<150)
== END 2024-12-03 09:17 | disposition home or self-care (01) ==
LOC: CHSLAB 09:18
PROVIDERS: PCP Nurse Practitioner Family; Visit Provider Nurse Practitioner Family
DX: Z00.00 Encounter for general adult medical examination without abnormal findings (principal); E55.9 Vitamin D deficiency, unspecified; E78.5 Hyperlipidemia, unspecified; R74.8 Abnormal levels of other serum enzymes
CPT/HCPCS: 36415; 80053; 80061; 82306; 85025